=== PATIENT | female | born 1955 | race Caucasian/White ===

== ENCOUNTER → 2023-08-28 20:31 | Outpatient (REF) | payer MEDICARE, OTHER, SELFPAY | LOC: MRI 20:31 | PROVIDERS: ATTENDING PHYSICIAN Physician Assistant; FAMILY PHYSICIAN Family Medicine | DX: M25.562 Pain in left knee (principal) | CPT/HCPCS: 73721 ==

== ENCOUNTER → 2023-09-08 10:11 | Outpatient (REF) | payer MEDICARE, OTHER, SELFPAY | LOC: WDC 10:11 | PROVIDERS: ATTENDING PHYSICIAN Nurse Practitioner Family | DX: N63.14 Unspecified lump in the right breast, lower inner quadrant (principal) | CPT/HCPCS: 76642; 77061; 77065 ==

== ENCOUNTER → 2023-09-19 08:28 | Outpatient (REF) | payer MEDICARE, OTHER, SELFPAY ==
--- NOTE | 2023-09-19 13:45 | OID.BR.INTR ---
[facility] Navigator - Initial
- -
Date of Contact: 09/19/23
Met with patient. Patient given written information on navigator services and support services available at [facility]. Will follow up as needed per protocol.
== END ==
LOC: WDC 08:28
PROVIDERS: ATTENDING PHYSICIAN Nurse Practitioner Family
DX: N63.14 Unspecified lump in the right breast, lower inner quadrant (principal)
CPT/HCPCS: 88305; 19083; 19084; 77065; 88342; 88360; A4648

== ENCOUNTER → 2023-09-27 11:08 | Outpatient (REF) | payer MEDICARE, OTHER, SELFPAY | LOC: WDC 11:08 | PROVIDERS: ATTENDING PHYSICIAN Surgery | DX: R92.8 Other abnormal and inconclusive findings on diagnostic imaging of breast (principal) | CPT/HCPCS: A4648 ==

== ENCOUNTER → 2023-10-03 16:29 | Outpatient (REF) | payer MEDICARE, OTHER, SELFPAY | LOC: MRI 3T 16:29 | PROVIDERS: ATTENDING PHYSICIAN Surgery; FAMILY PHYSICIAN Family Medicine | DX: C50.411 Malignant neoplasm of upper-outer quadrant of right female breast (principal); C50.919 Malignant neoplasm of unspecified site of unspecified female breast | CPT/HCPCS: 77049; A9585 ==

== ENCOUNTER → 2023-10-13 16:35 | Outpatient (REF) | payer MEDICARE, OTHER, SELFPAY | LOC: RCS 16:35 | PROVIDERS: ATTENDING PHYSICIAN Internal Medicine Hematology & Oncology; FAMILY PHYSICIAN Family Medicine | DX: C50.211 Malignant neoplasm of upper-inner quadrant of right female breast (principal) | CPT/HCPCS: 93306 ==

== ENCOUNTER 2023-10-16 06:29 | Day surgery (SDC) | payer MEDICARE, OTHER, SELFPAY ==
[2023-10-16 11:59] VITALS: BMI 21.0
[2023-10-16 12:00] VITALS: BP 158/82; BMI 21.0
[2023-10-16] MEDS: NORMOSOL-R 1000 IV (13:03)
[2023-10-16] MEDS: NSS 1000 IV (13:04)
[2023-10-16 14:18] VITALS: BP 144/82
[2023-10-16 14:30] VITALS: BP 153/82
[2023-10-16 14:50] VITALS: BP 109/78
[2023-10-16 15:00] VITALS: BP 150/88
== END 2023-10-16 16:15 | disposition home or self-care (01) ==
LOC: SDS 06:29
PROVIDERS: ATTENDING PHYSICIAN Surgery
DX: C50.911 Malignant neoplasm of unspecified site of right female breast (principal); Z17.1 Estrogen receptor negative status [ER-]
CPT/HCPCS: 36561; 71045; 76000; C1788

== ENCOUNTER → 2023-10-17 15:32 | Outpatient (REF) | payer MEDICARE, OTHER, SELFPAY ==
[2023-10-17 10:28] LABS: % Basophils 0.3 % (0-2); % Eosinophils 1.3 % (0-6); % Immature Granulocytes 0.3 % (0-0.5); % Lymphocytes 21.6 % (20.5-51.1); % Monocytes 7.9 % (1.7-9.3); % Neutrophils 68.6 % (42.2-75.2); Absolute Eosinophils 0.1 10^3/uL (0-0.7); Absolute Lymphocytes 1.6 10^3/uL (1.2-3.4); Absolute Monocytes 0.6 10^3/uL (0.1-0.6); Absolute Neutrophils 5.2 10^3/uL (1.4-6.5); Hematocrit 32.1 % (37.0-47.0); Hemoglobin 10.8 g/dL (12.0-16.0); Mean Corp Hgb Conc. 33.6 g/dL (33.0-37.0); Mean Corpuscular Hgb 29.2 pg (27.0-31.0); Mean Corpuscular Volume 86.8 fL (81.0-99.0); Mean Platelet Volume 8.7 fL (7.4-10.4); Platelet Count 278 10^3/uL (130-400); White Blood Cell Count 7.5 10^3/uL (4.8-10.8)
[2023-10-17 11:43] LABS: ALT (SGPT) 18 U/L (0-35); AST (SGOT) 26 U/L (14-36); Albumin 3.9 g/dl (3.5-5.0); Alkaline Phosphatase 74 U/L (38-126); Blood Urea Nitrogen 15 mg/dl (7-17); Calcium 9.3 mg/dl (8.4-10.2); Carbon Dioxide 21 mmol/L (22-30); Chloride 109 mmol/L (98-107); Glucose 114 mg/dl (70-99); Potassium 3.7 mmol/L (3.5-5.1); Sodium 139 mmol/L (135-145); Total Bilirubin 0.3 mg/dl (0.2-1.3); Total Protein 6.6 g/dl (6.3-8.2); eGFR > 60.00
[2023-10-17 15:09] LABS: TSH 0.42 uIU/ml (0.47-4.68)
[2023-10-17 15:16] LABS: Free T4 1.12 ng/dl (0.78-2.19)
[2023-10-20 01:37] LABS: Total T3 (Sendout) 88 ng/dL (80-200)
== END ==
LOC: OIDL 15:32
PROVIDERS: ATTENDING PHYSICIAN Internal Medicine Hematology & Oncology
DX: C50.211 Malignant neoplasm of upper-inner quadrant of right female breast (principal); R53.82 Chronic fatigue, unspecified
CPT/HCPCS: 80053; 84439; 84443; 84480; 85025

== ENCOUNTER → 2023-10-24 16:19 | Outpatient (REF) | payer MEDICARE, OTHER, SELFPAY ==
[2023-10-24 14:40] LABS: % Basophils 0.8 % (0-2); % Eosinophils 4.4 % (0-6); % Immature Granulocytes 0.5 % (0-0.5); % Lymphocytes 30.2 % (20.5-51.1); % Monocytes 7.4 % (1.7-9.3); % Neutrophils 56.7 % (42.2-75.2); Absolute Eosinophils 0.2 10^3/uL (0-0.7); Absolute Lymphocytes 1.1 10^3/uL (1.2-3.4); Absolute Monocytes 0.3 10^3/uL (0.1-0.6); Absolute Neutrophils 2.1 10^3/uL (1.4-6.5); Hematocrit 32.7 % (37.0-47.0); Hemoglobin 10.9 g/dL (12.0-16.0); Mean Corp Hgb Conc. 33.3 g/dL (33.0-37.0); Mean Corpuscular Hgb 29.2 pg (27.0-31.0); Mean Corpuscular Volume 87.7 fL (81.0-99.0); Mean Platelet Volume 8.7 fL (7.4-10.4); Platelet Count 264 10^3/uL (130-400); Red Blood Cell Count 3.73 10^6/uL (4.20-5.40); White Blood Cell Count 3.6 10^3/uL (4.8-10.8)
[2023-10-24 15:41] LABS: ALT (SGPT) 14 U/L (0-35); AST (SGOT) 25 U/L (14-36); Alkaline Phosphatase 60 U/L (38-126); Blood Urea Nitrogen 17 mg/dl (7-17); Calcium 9.6 mg/dl (8.4-10.2); Carbon Dioxide 26 mmol/L (22-30); Chloride 105 mmol/L (98-107); Glucose 116 mg/dl (70-99); Potassium 3.9 mmol/L (3.5-5.1); Sodium 141 mmol/L (135-145); Total Bilirubin 0.5 mg/dl (0.2-1.3); Total Protein 6.7 g/dl (6.3-8.2); eGFR > 60.00
== END ==
LOC: OIDL 16:19
PROVIDERS: ATTENDING PHYSICIAN Internal Medicine Hematology & Oncology
DX: C50.211 Malignant neoplasm of upper-inner quadrant of right female breast (principal)
CPT/HCPCS: 80053; 85025

== ENCOUNTER → 2023-11-07 11:07 | Outpatient (REF) | payer MEDICARE, OTHER, SELFPAY ==
[2023-11-07 11:50] LABS: ALT (SGPT) 27 U/L (0-35); AST (SGOT) 32 U/L (14-36); Albumin 4.2 g/dl (3.5-5.0); Alkaline Phosphatase 59 U/L (38-126); Blood Urea Nitrogen 17 mg/dl (7-17); Calcium 9.8 mg/dl (8.4-10.2); Carbon Dioxide 26 mmol/L (22-30); Chloride 108 mmol/L (98-107); Glucose 96 mg/dl (70-99); Potassium 4.4 mmol/L (3.5-5.1); Sodium 140 mmol/L (135-145); Total Bilirubin 0.4 mg/dl (0.2-1.3); Total Protein 6.8 g/dl (6.3-8.2); eGFR > 60.00
== END ==
LOC: OIDL 11:07
PROVIDERS: ATTENDING PHYSICIAN Internal Medicine Hematology & Oncology
DX: C50.211 Malignant neoplasm of upper-inner quadrant of right female breast (principal); R53.82 Chronic fatigue, unspecified; R79.9 Abnormal finding of blood chemistry, unspecified; R53.83 Other fatigue; F41.1 Generalized anxiety disorder; R59.0 Localized enlarged lymph nodes; Z51.12 Encounter for antineoplastic immunotherapy
CPT/HCPCS: 80053

== ENCOUNTER → 2023-11-27 10:42 | Outpatient (REF) | payer MEDICARE, OTHER, SELFPAY ==
[2023-11-27 11:29] LABS: % Eosinophils 7.5 % (0-6); % Immature Granulocytes 1.4 % (0-0.5); % Lymphocytes 53.1 % (20.5-51.1); % Monocytes 5.4 % (1.7-9.3); % Neutrophils 30.6 % (42.2-75.2); Absolute Eosinophils 0.1 10^3/uL (0-0.7); Absolute Lymphocytes 0.8 10^3/uL (1.2-3.4); Absolute Monocytes 0.1 10^3/uL (0.1-0.6); Hematocrit 29.2 % (37.0-47.0); Hemoglobin 9.6 g/dL (12.0-16.0); Mean Corp Hgb Conc. 32.9 g/dL (33.0-37.0); Mean Corpuscular Hgb 28.5 pg (27.0-31.0); Mean Corpuscular Volume 86.6 fL (81.0-99.0); Mean Platelet Volume 8.8 fL (7.4-10.4); Nucleated Red Blood Cells % 0 %; Platelet Count 171 10^3/uL (130-400); Red Blood Cell Count 3.37 10^6/uL (4.20-5.40); Red Cell Dist. Width 14.9 % (11.5-14.5)
[2023-11-27 11:53] LABS: ALT (SGPT) 34 U/L (0-35); AST (SGOT) 38 U/L (14-36); Albumin 3.8 g/dl (3.5-5.0); Alkaline Phosphatase 60 U/L (38-126); Blood Urea Nitrogen 15 mg/dl (7-17); Calcium 8.9 mg/dl (8.4-10.2); Carbon Dioxide 28 mmol/L (22-30); Chloride 107 mmol/L (98-107); Glucose 81 mg/dl (70-99); Potassium 4.4 mmol/L (3.5-5.1); Sodium 139 mmol/L (135-145); Total Bilirubin 0.6 mg/dl (0.2-1.3); Total Protein 6.2 g/dl (6.3-8.2); eGFR > 60.00
[2023-11-27 14:00] LABS: Absolute Neutrophils 0.5 10^3/uL (1.4-6.5); White Blood Cell Count 1.5 10^3/uL (4.8-10.8)
== END ==
LOC: REG 10:42
PROVIDERS: ATTENDING PHYSICIAN Internal Medicine Hematology & Oncology
DX: C50.211 Malignant neoplasm of upper-inner quadrant of right female breast (principal)
CPT/HCPCS: 36415; 80053; 85025

== ENCOUNTER → 2023-11-28 07:27 | Outpatient (REF) | payer MEDICARE, OTHER, SELFPAY ==
[2023-11-28 08:10] LABS: Hematocrit 29.6 % (37.0-47.0); Hemoglobin 9.8 g/dL (12.0-16.0); Mean Corp Hgb Conc. 33.1 g/dL (33.0-37.0); Mean Corpuscular Hgb 29.1 pg (27.0-31.0); Mean Corpuscular Volume 87.8 fL (81.0-99.0); Platelet Count 166 10^3/uL (130-400); Red Blood Cell Count 3.37 10^6/uL (4.20-5.40); Red Cell Dist. Width 15.1 % (11.5-14.5); White Blood Cell Count 2.9 10^3/uL (4.8-10.8)
[2023-11-28 08:41] LABS: Absolute Neutrophils -Man Diff 1.7 10^3/uL (1.4-6.5); Atypical Lymphocytes 1 %; Band Neutrophils 11 % (0-3); Eosinophils 7 % (0-6); Lymphocytes 29 % (20-51); Metamyelocytes 1 % (-); Monocytes 0 % (2-9); Platelets Checked Yes; Segmented Neutrophils 51 % (42-75)
[2023-11-28 08:42] LABS: Anisocytosis 1+; Hypochromasia Slight; Normal RBC Morphology No; Ovalocytes 1+; Polychromasia 1+; Total Cells Counted 100
[2023-11-28 09:22] LABS: ALT (SGPT) 30 U/L (0-35); AST (SGOT) 33 U/L (14-36); Albumin 3.7 g/dl (3.5-5.0); Alkaline Phosphatase 73 U/L (38-126); Blood Urea Nitrogen 18 mg/dl (7-17); Calcium 9.1 mg/dl (8.4-10.2); Carbon Dioxide 24 mmol/L (22-30); Chloride 110 mmol/L (98-107); Glucose 82 mg/dl (70-99); Sodium 143 mmol/L (135-145); Total Bilirubin 0.4 mg/dl (0.2-1.3); Total Protein 6.2 g/dl (6.3-8.2); eGFR > 60.00
[2023-11-28 09:27] LABS: Potassium 4.1 mmol/L (3.5-5.1)
== END ==
LOC: REG 07:27
PROVIDERS: ATTENDING PHYSICIAN Internal Medicine Hematology & Oncology
DX: C50.211 Malignant neoplasm of upper-inner quadrant of right female breast (principal)
CPT/HCPCS: 36415; 80053; 85025

== ENCOUNTER → 2024-01-10 11:47 | Outpatient (REF) | payer MEDICARE, OTHER, SELFPAY ==
[2024-01-10 10:41] LABS: Free T4 0.84 ng/dl (0.78-2.19)
== END ==
LOC: OIDL 11:47
PROVIDERS: ATTENDING PHYSICIAN Nurse Practitioner Adult Health
DX: C50.211 Malignant neoplasm of upper-inner quadrant of right female breast (principal); R53.82 Chronic fatigue, unspecified
CPT/HCPCS: 84439; 84443

== ENCOUNTER → 2024-01-25 13:44 | Outpatient (REF) | payer MEDICARE, OTHER, SELFPAY ==
[2024-01-25 14:31] LABS: ALT (SGPT) 11 U/L (0-35); AST (SGOT) 15 U/L (14-36); Albumin 4.1 g/dl (3.5-5.0); Alkaline Phosphatase 91 U/L (38-126); Blood Urea Nitrogen 17 mg/dl (7-17); Calcium 9.5 mg/dl (8.4-10.2); Carbon Dioxide 22 mmol/L (22-30); Chloride 104 mmol/L (98-107); Glucose 126 mg/dl (70-99); Sodium 138 mmol/L (135-145); Total Bilirubin 0.4 mg/dl (0.2-1.3); Total Protein 6.3 g/dl (6.3-8.2); eGFR > 60.00
[2024-01-25 14:40] LABS: % Basophils 2.5 % (0-2); % Eosinophils 6.3 % (0-6); % Immature Granulocytes 1.3 % (0-0.5); % Lymphocytes 51.3 % (20.5-51.1); % Monocytes 17.5 % (1.7-9.3); % Neutrophils 21.1 % (42.2-75.2); Absolute Eosinophils 0.1 10^3/uL (0-0.7); Absolute Lymphocytes 0.4 10^3/uL (1.2-3.4); Absolute Monocytes 0.1 10^3/uL (0.1-0.6); Absolute Neutrophils 0.2 10^3/uL (1.4-6.5); Hematocrit 23.6 % (37.0-47.0); Mean Corp Hgb Conc. 33.9 g/dL (33.0-37.0); Mean Corpuscular Hgb 31.4 pg (27.0-31.0); Mean Corpuscular Volume 92.5 fL (81.0-99.0); Mean Platelet Volume 9.6 fL (7.4-10.4); Nucleated Red Blood Cells % 0 %; Platelet Count 126 10^3/uL (130-400); Red Blood Cell Count 2.55 10^6/uL (4.20-5.40); Red Cell Dist. Width 15.6 % (11.5-14.5); White Blood Cell Count 0.8 10^3/uL (4.8-10.8)
== END ==
LOC: OIDL 13:44
PROVIDERS: ATTENDING PHYSICIAN Internal Medicine Hematology & Oncology
DX: C50.211 Malignant neoplasm of upper-inner quadrant of right female breast (principal); R53.82 Chronic fatigue, unspecified; R79.9 Abnormal finding of blood chemistry, unspecified; R53.83 Other fatigue; F41.1 Generalized anxiety disorder; R59.0 Localized enlarged lymph nodes; Z51.12 Encounter for antineoplastic immunotherapy
CPT/HCPCS: 80053; 85025

== ENCOUNTER → 2024-02-27 12:02 | Outpatient (REF) | payer MEDICARE, OTHER, SELFPAY ==
[2024-02-27 11:52] LABS: % Basophils 1.2 % (0-2); % Eosinophils 0.9 % (0-6); % Immature Granulocytes 0.6 % (0-0.5); % Lymphocytes 7.7 % (20.5-51.1); % Monocytes 7.3 % (1.7-9.3); % Neutrophils 82.3 % (42.2-75.2); Absolute Basophils 0.1 10^3/uL (0-0.2); Absolute Eosinophils 0.1 10^3/uL (0-0.7); Absolute Immature Granulocytes 0.1 10^3/uL (0-0.05); Absolute Lymphocytes 0.6 10^3/uL (1.2-3.4); Absolute Monocytes 0.6 10^3/uL (0.1-0.6); Absolute Neutrophils 6.4 10^3/uL (1.4-6.5); Hemoglobin 8.6 g/dL (12.0-16.0); Mean Corp Hgb Conc. 33.1 g/dL (33.0-37.0); Mean Corpuscular Hgb 30.7 pg (27.0-31.0); Mean Corpuscular Volume 92.9 fL (81.0-99.0); Mean Platelet Volume 8.9 fL (7.4-10.4); Nucleated Red Blood Cells % 0 %; Platelet Count 362 10^3/uL (130-400); Red Cell Dist. Width 15.5 % (11.5-14.5); White Blood Cell Count 7.8 10^3/uL (4.8-10.8)
[2024-02-27 12:06] LABS: ALT (SGPT) 17 U/L (0-35); AST (SGOT) 22 U/L (14-36); Albumin 3.9 g/dl (3.5-5.0); Alkaline Phosphatase 74 U/L (38-126); Blood Urea Nitrogen 18 mg/dl (7-17); Calcium 9.2 mg/dl (8.4-10.2); Carbon Dioxide 24 mmol/L (22-30); Chloride 107 mmol/L (98-107); Glucose 87 mg/dl (70-99); Potassium 4.4 mmol/L (3.5-5.1); Sodium 143 mmol/L (135-145); Total Bilirubin 0.3 mg/dl (0.2-1.3); Total Protein 6.3 g/dl (6.3-8.2); eGFR > 60.00
[2024-02-27 12:36] LABS: TSH Reflex To Free T4 1.17 uIU/ml (0.47-4.68)
== END ==
LOC: OIDL 12:02
PROVIDERS: ATTENDING PHYSICIAN Internal Medicine Hematology & Oncology
DX: C50.211 Malignant neoplasm of upper-inner quadrant of right female breast (principal); R53.82 Chronic fatigue, unspecified; R79.9 Abnormal finding of blood chemistry, unspecified; R53.83 Other fatigue; F41.1 Generalized anxiety disorder; R59.0 Localized enlarged lymph nodes; Z51.12 Encounter for antineoplastic immunotherapy; K12.31 Oral mucositis (ulcerative) due to antineoplastic therapy
CPT/HCPCS: 80053; 84443; 85025

== ENCOUNTER → 2024-03-04 13:55 | Outpatient (REF) | payer MEDICARE, OTHER, SELFPAY ==
[2024-03-04 14:41] LABS: Hematocrit 26.4 % (37.0-47.0); Hemoglobin 8.8 g/dL (12.0-16.0); Mean Corp Hgb Conc. 33.3 g/dL (33.0-37.0); Mean Corpuscular Hgb 31.5 pg (27.0-31.0); Mean Corpuscular Volume 94.6 fL (81.0-99.0); Mean Platelet Volume 9.2 fL (7.4-10.4); Platelet Count 203 10^3/uL (130-400); Red Blood Cell Count 2.79 10^6/uL (4.20-5.40); Red Cell Dist. Width 15.3 % (11.5-14.5); White Blood Cell Count 8.5 10^3/uL (4.8-10.8)
[2024-03-04 14:56] LABS: ALT (SGPT) 13 U/L (0-35); AST (SGOT) 21 U/L (14-36); Albumin 4.2 g/dl (3.5-5.0); Alkaline Phosphatase 100 U/L (38-126); Blood Urea Nitrogen 19 mg/dl (7-17); Calcium 9.5 mg/dl (8.4-10.2); Carbon Dioxide 25 mmol/L (22-30); Chloride 105 mmol/L (98-107); Glucose 102 mg/dl (70-99); Sodium 142 mmol/L (135-145); Total Bilirubin 0.3 mg/dl (0.2-1.3); Total Protein 6.5 g/dl (6.3-8.2); eGFR > 60.00
[2024-03-04 15:13] LABS: Absolute Neutrophils -Man Diff 7.7 10^3/uL (1.4-6.5); Band Neutrophils 1 % (0-3); Lymphocytes 8 % (20-51); Monocytes 1 % (2-9); Segmented Neutrophils 90 % (42-75)
[2024-03-04 15:14] LABS: Normal RBC Morphology No; Platelets Checked Yes; Total Cells Counted 100
[2024-03-04 15:36] LABS: Dohle Bodies Occasional
== END ==
LOC: REG 13:55
PROVIDERS: ATTENDING PHYSICIAN Internal Medicine Hematology & Oncology; FAMILY PHYSICIAN Family Medicine
DX: C50.211 Malignant neoplasm of upper-inner quadrant of right female breast (principal); R53.82 Chronic fatigue, unspecified; R79.9 Abnormal finding of blood chemistry, unspecified; R53.83 Other fatigue; F41.1 Generalized anxiety disorder; R59.0 Localized enlarged lymph nodes; Z51.12 Encounter for antineoplastic immunotherapy; K12.31 Oral mucositis (ulcerative) due to antineoplastic therapy
CPT/HCPCS: 36415; 80053; 85025

== ENCOUNTER → 2024-03-26 16:29 | Outpatient (REF) | payer MEDICARE, OTHER, SELFPAY | LOC: MRI 3T 16:29 | PROVIDERS: ATTENDING PHYSICIAN Surgery; FAMILY PHYSICIAN Family Medicine | DX: C50.411 Malignant neoplasm of upper-outer quadrant of right female breast (principal) | CPT/HCPCS: 77049; A9585 ==

== ENCOUNTER → 2024-04-01 12:31 | Outpatient (REF) | payer MEDICARE, OTHER, SELFPAY | LOC: RCS 12:31 | PROVIDERS: ATTENDING PHYSICIAN Internal Medicine Cardiovascular Disease; FAMILY PHYSICIAN Family Medicine | DX: Z85.3 Personal history of malignant neoplasm of breast (principal); T45.1X5D Adverse effect of antineoplastic and immunosuppressive drugs, subsequent encounter | CPT/HCPCS: 93306; 93356 ==

== ENCOUNTER → 2024-04-15 09:25 | Outpatient (REF) | payer MEDICARE, OTHER, SELFPAY | LOC: WDC 09:25 | PROVIDERS: ATTENDING PHYSICIAN Surgery; FAMILY PHYSICIAN Family Medicine | DX: C50.411 Malignant neoplasm of upper-outer quadrant of right female breast (principal) | CPT/HCPCS: 19285; 38792; 76942; A4648; A9541 ==

== ENCOUNTER → 2024-04-16 07:32 | Outpatient (REF) | payer MEDICARE, OTHER, SELFPAY | LOC: WDC 07:32 | PROVIDERS: ATTENDING PHYSICIAN Surgery | DX: C50.411 Malignant neoplasm of upper-outer quadrant of right female breast (principal) | CPT/HCPCS: 88305; 88307; 88332; 76098; 88331; 88342 ==

== ENCOUNTER → 2024-10-28 09:26 | Outpatient (REF) | payer MEDICARE, OTHER, SELFPAY | LOC: RCS 09:26 | PROVIDERS: ATTENDING PHYSICIAN Internal Medicine Cardiovascular Disease; FAMILY PHYSICIAN Family Medicine | DX: Z85.3 Personal history of malignant neoplasm of breast (principal); T45.1X5D Adverse effect of antineoplastic and immunosuppressive drugs, subsequent encounter | CPT/HCPCS: 93306; 93356 ==

== ENCOUNTER → 2025-01-28 15:12 | Outpatient (REF) | payer MEDICARE, OTHER, SELFPAY | LOC: WDC 15:12 | PROVIDERS: ATTENDING PHYSICIAN Family Medicine Geriatric Medicine; FAMILY PHYSICIAN Family Medicine | DX: Z85.3 Personal history of malignant neoplasm of breast (principal); Z12.39 Encounter for other screening for malignant neoplasm of breast; Z12.31 Encounter for screening mammogram for malignant neoplasm of breast | CPT/HCPCS: 77063; 77067 ==

== ENCOUNTER → 2025-03-17 10:50 | Outpatient (REF) | payer MEDICARE, OTHER, SELFPAY | LOC: RAD 10:50 | PROVIDERS: ATTENDING PHYSICIAN Family Medicine | DX: C50.211 Malignant neoplasm of upper-inner quadrant of right female breast (principal); Z78.0 Asymptomatic menopausal state | CPT/HCPCS: 77080 ==